=== PATIENT | female | born 1990 | race African-American/Black ===

== ENCOUNTER 2016-10-09 05:15 | Emergency (ER) | payer OTHER ==
[2016-10-09 06:09] LABS: URINE SOURCE CLEAN CATCH
[2016-10-09 06:13] LABS: URINE BLOOD 2+ (NEG); URINE GLUCOSE NEG (NEG); URINE LEUKOCYTE ESTERASE 3+ (NEG)
[2016-10-09 06:15] LABS: CULTURE INDICATED? YES; URBCS1 AUWI INNUM /[HPF] (0-2); URINE BACTERIA AUWI NEG (NEGATIVE)
[2016-10-09 06:35] LABS: URINE APPEARANCE HAZY; URINE BILIRUBIN NEG (NEG); URINE COLOR ORANGE
[2016-10-09 06:38] LABS: URINE PROTEIN 2+ (NEG)
[2016-10-09 06:39] LABS: URINE NITRATE POS (NEG)
[2016-10-09 06:40] LABS: URINE KETONE NEG (NEG); UWBCS1 AUWI 50-100 (0-5)
[2016-10-09 06:41] LABS: URINE SQUAMOUS EPITHELIAL CELL OCCAS /[HPF]
== END 2016-10-09 07:00 | disposition home or self-care (01) ==
LOC: CED 05:15
PROVIDERS: Nurse Practitioner
DX: N39.0 Urinary tract infection, site not specified (principal)
CPT/HCPCS: 81003; 84703; 87086; 99283

== ENCOUNTER 2017-01-22 11:14 | Emergency (ER) | payer OTHER ==
[~2017-01-22] VITALS: Ht 170.2 cm; Wt 59.0 kg
[2017-01-22 11:32] LABS: URINE SOURCE CLEAN CATCH
[2017-01-22 11:36] LABS: URINE APPEARANCE CLOUDY; URINE BILIRUBIN NEG (NEG); URINE BLOOD 3+ (NEG); URINE COLOR YELLOW; URINE GLUCOSE NEG (NEG); URINE KETONE NEG (NEG); URINE LEUKOCYTE ESTERASE 3+ (NEG); URINE NITRATE NEG (NEG); URINE PROTEIN 2+ (NEG); URINE SPECIFIC GRAVITY 1.024 (1.003-1.035); URINE UROBILINOGEN 0.2 MG/DL (NEG)
[2017-01-22 11:37] LABS: CULTURE INDICATED? YES; URBCS1 AUWI INNUM /[HPF] (0-2); URINE BACTERIA AUWI 1+ (NEGATIVE); URINE SQUAMOUS EPITHELIAL CELL FEW /[HPF]; UWBCS1 AUWI INNUM (0-5)
== END 2017-01-22 12:05 | disposition home or self-care (01) ==
LOC: CFTX 11:14 → CED 11:14 → CFTX 11:50
PROVIDERS: Nurse Practitioner
DX: N30.01 Acute cystitis with hematuria (principal)
CPT/HCPCS: 81003; 84703; 87086; 87088; 87186; 99283